=== PATIENT | male | born 1950 | race Caucasian/White ===

== ENCOUNTER 2016-09-11 15:48 | Emergency (ER) | payer OTHER ==
[~2016-09-11] VITALS: Ht 180.3 cm; Wt 117.6 kg
[~2016-09-11 15:48] MED LIST: AMBI5TAB PO; CARV6.252 PO; ECOT81TA2 PO; FURO20TA PO; GLUCTAB PO; MILK175C5 PO; MORP30SU PO; NORT1CAP53 PO; OMEP20TA PO; PARKINSONS MED PO; SERT-132 PO; SPIR25TA PO; VITA10002 PO
[2016-09-11 15:52] VITALS: BP 131/96; PULSE 75; RESP 16; TEMP 98.9; O2SAT 97
[2016-09-11] MEDS ORDERED: ACETAMINOPHEN/HYDROcodone 325 MG/5 MG TAB PO ONE (16:15)
--- NOTE | 2016-09-11 16:15 | PD ---
HPI Chief Complaint: Musculoskeletal Complaint Time Seen by Provider: 16:14 Travel History International Travel<30 days: No Contact w/Intl Traveler<30days: No Traveled to known affect area: No History of Present Illness HPI 65-year-old right-hand dominant male who since the ED for evaluation of 10/10 left wrist pain. Onset just before arrival. Patient states he lost his balance , tripped, landing on his outstretched left hand. He endorses pain with attempted range of motion. He denies hitting his head or loss of consciousness. He denies previous injury to the area. He denies numbness, tingling, weakness of the extremity. He denies other musculoskeletal injury. No treatment attempt at home. PFSH Past Medical History Arthritis: Yes Asthma: Yes Anxiety: Yes Depression: Yes Cancer: No Cardiac Catheterization: Yes (2002) Cardiovascular Problems: Yes High Cholesterol: Yes Congestive Heart Failure: Yes Coronary Artery Disease: Yes Diabetes: Yes Diminished Hearing: Yes Endocrine: Yes Genitourinary: No Headaches: Yes Hepatitis: No Hiatal Hernia: No Hypertension: Yes Immune Disorder: No Kidney Stones: Yes Musculoskeletal: Yes Neurologic: No Psychiatric: Yes Reproductive: No Respiratory: Yes (ASTHMA ; SLEEP APNEA) Immunizations Current: Yes Sleep Apnea: Yes Thyroid Disease: No Past Surgical History Abdominal Surgery: No AICD: No Cardiac Surgery: Yes (HEART CATH; INSERTION PACEMAKER) Ear Surgery: No Endocrine Surgery: No Eye Surgery: No Genitourinary Surgery: No Gynecologic Surgery: No Joint Replacement: No Oral Surgery: No Pacemaker: Yes Thoracic Surgery: No Other Surgery: Yes (FISTULOTOMY, LIVER BIOPSY) Social History Alcohol Use: No Tobacco Use: No (NEVER) Substance Use: Yes (BOUGHT PAIN PILLS OFF STREET) Allergies-Medications (Allergen,Severity, Reaction): Coded Allergies: Penicillin (Verified Allergy, Severe, HIVES, 09/11/16) Reported Meds & Prescriptions Reported Meds & Active Scripts Active Tylenol (Acetaminophen) 325 Mg Tab 650 Mg PO Q8HR PRN Lortab (Hydrocodone-Acetaminophen) 5-325 Mg Tab 1-2 Tab PO Q8HR PRN Reported Spironolactone 25 Mg Tab 25 Mg PO DAILY Sertraline (Sertraline HCl) 100 Mg Tab 100 Mg PO BID Omeprazole 20 Mg Tab 20 Mg PO DAILY Pamelor (Nortriptyline HCl) 25 Mg Cap 25 Mg PO HS Morphine Sulfate CR (Morphine Sulfate) 15 Mg Tab 30 Mg PO Q8HR PRN Milk Thistle 175 Mg Cap 1 Cap PO BID Metformin (Metformin HCl) 500 Mg Tab 250 Mg PO BIDPC With meals Furosemide 40 Mg Tab 40 Mg PO DAILY Vitamin B-12 (Cyanocobalamin) 1,000 Mcg Tab 2,000 Mcg PO DAILY Carvedilol 25 Mg Tab 25 Mg PO BID Aspirin 81 Mg Tabdr 81 Mg PO DAILY [Parkinsons Med] 1 Tab PO DAILY Review of Systems Except as stated in HPI: all other systems reviewed are Neg Physical Exam Narrative GENERAL: Well-nourished, well-developed pleasant white male in no acute distress. SKIN: Focused skin assessment warm/dry. HEAD: Normocephalic. EYES: No scleral icterus. No injection or drainage. NECK: Supple, trachea midline. No JVD or lymphadenopathy. CARDIOVASCULAR: Regular rate and rhythm without murmurs, gallops, or rubs. RESPIRATORY: Breath sounds equal bilaterally. No accessory muscle use. GASTROINTESTINAL: Abdomen soft, non-tender, nondistended. FOCUSED LEFT UPPER EXTREMITY EXAM: 2+ radial pulse. No cyanosis. Mild to moderate edema of the left wrist. Tender to palpation of the distal radius. No snuffbox tenderness. Attempted flexion and extension of the wrist elicits pain. Patient is able to weakly flex and extend the fingers. Sensation intact to light touch distally. Cap refill less than 2 seconds. BACK: Nontender without obvious deformity. No CVA tenderness. Data Data Last Documented VS Vital Signs Date Time Temp Pulse Resp B/P Pulse Ox O2 Delivery O2 Flow Rate FiO2 09/11/16 17:04 16 09/11/16 15:52 98.9 75 131/96 97 Orders Wrist, Complete (Epr9erh) (09/11/16 16:11) Ice/Cold Pack (09/11/16 16:11) Acetamin-Hydrocod 325-5 Mg ([place] 5-325 (09/11/16 16:15) Splint Or Brace Apply/Monitor (09/11/16 17:34) Fiberglass Sugartong Sp Ad Arm (09/11/16 ) Sling Cradle Arm (09/11/16 ) MDM Medical Decision Making Medical Screen Exam Complete: Yes Emergency Medical Condition: Yes Differential Diagnosis Radial fracture versus ulnar fracture versus scaphoid fracture versus musculoskeletal pain versus other Narrative Course 65-year-old right-hand dominant male who since the ED for evaluation of 03/24 left wrist pain. Onset just before arrival. Patient states he lost his balance , tripped, landing on his outstretched left hand. He endorses pain with attempted range of motion. He denies hitting his head or loss of consciousness. He denies previous injury to the area. He denies numbness, tingling, weakness of the extremity. He denies other musculoskeletal injury. Vitals reviewed. Physical exam reveals a pleasant white male in no acute distress. There is a 2+ left radial pulse. No cyanosis. Mild to moderate edema of the left wrist. Tender to palpation of the left distal radius. No snuffbox tenderness. Attempted flexion and extension of the wrist elicits pain. Patient is able to weakly flex and extend the fingers. Sensation intact to light touch distally. Cap refill less than 2 seconds. Ice pack was applied. Patient was administered 5 mg Lortab by mouth. X-rays reveal an impacted fracture of the distal radial metaphysis extending to the dorsal articular surface with 20 of palmar angulation. I discussed the patient with the on-call orthopedist, Dr. Fuentes. He recommends splinting and follow-up in the office. I discussed the results of the x-ray and the plan of care with the patient who is agreeable. Sugar tong splint and sling was applied. Patient was prescribed a short course of Tylenol and Lortab. He is instructed to keep the splint intact until cleared by the orthopedist. He indicated understanding of instructions. He is stable and discharged home. Diagnosis Primary Impression: Left radial fracture Qualified Code: S52.592A - Other closed fracture of distal end of left radius , initial encounter Referrals: Osei Fuentes Jr., MD Patient Instructions: Arm Fracture in Adults (ED), General Instructions, Wrist Fracture in Adults (ED) Additional Instructions: Rest, ice the extremity. Apply ice no longer than 10-15 minutes per hour a few times a day. Tylenol times a day as prescribed Lortab every 8 hours as needed for pain greater than 6. Did not remove the splint for any reason. Keep the arm in sling unless showering. Dr. Fuentes's office tomorrow for an appointment. Return to the ED for any urgent or emergent medical condition. Med/Other Pt SpecificInfo: Prescription(s) given Scripts Acetaminophen (Tylenol)325 Mg [id number] Mg PO Q8HR PRN (PAIN SCALE 1 TO 5) #15 TAB Ref 0 Prov:Ghislaine Verde MD 09/11/16 Hydrocodone-Acetaminophen (Lortab)5-325 Mg Tab1-2 Tab PO Q8HR PRN (PAIN GREATER THAN 6) #12 TAB Ref 0 Prov:Ghislaine Verde MD 09/11/16 Disposition: 01 DISCHARGE HOME Condition: Stable Paige Perez Sep 11, 2016 16:15
[2016-09-11] MEDS ORDERED: CARV25TA PO (16:26)
[2016-09-11] MEDS ORDERED: PAME25CA PO (16:26)
[2016-09-11] MEDS ORDERED: SERT-129 PO (16:26)
[2016-09-11] MEDS ORDERED: METF500T PO (16:26)
[2016-09-11] MEDS ORDERED: FURO40TA PO (16:26)
[2016-09-11] MEDS ORDERED: MORP15TA73 PO (16:26)
[2016-09-11] MEDS ORDERED: VITA10002 PO (16:26)
[2016-09-11] MEDS ORDERED: MILK175C7 PO (16:26)
[2016-09-11] MEDS ORDERED: ASPI1TAB69 PO (16:26)
[2016-09-11] MEDS ORDERED: SPIR25TA PO (16:26)
[2016-09-11] MEDS ORDERED: OMEP20TA PO (16:26)
[2016-09-11 17:04] VITALS: RESP 16
--- NOTE | 2016-09-11 17:07 | RADHPO ---
EXAM DATE/TIME: 09/11/2016 16:30 [facility] COMPARISON: No previous studies available for comparison. INDICATIONS : Fall. Complains of left wrist pain. MEDICAL HISTORY : None. SURGICAL HISTORY : None. ENCOUNTER: Initial ACUITY: 1 day PAIN SCORE: 10/10 LOCATION: Left wrist FINDINGS: 3 views of the left wrist reveal an acute impaction style fracture of the distal radial metaphysis. T here is a fracture line that is felt to extend to the articular surface along the more dorsal aspect. Angulation is seen measuring approximately 20. Lawn is towards the palmar surface. The distal ulna and carpus is otherwise intact. Soft tissue swelling noted. Atherosclerotic change is observed. CONCLUSION: Acute distal radial fracture as detailed above. Cresencio Matt Jr., MD on September 11, 2016 at 17:05 Board Certified Radiologist. This report was verified electronically.
[2016-09-11] MEDS ORDERED: HYDR-3533 PO (17:45)
[2016-09-11] MEDS ORDERED: TYLE325T PO (17:45)
[2016-09-29] MEDS ORDERED: PERC5TAB12 PO (13:05)
== END 2016-09-11 18:08 | disposition home or self-care (01) ==
LOC: PHEFT 15:48
DX: S52.592A Other fractures of lower end of left radius, initial encounter for closed fracture (principal); W01.0XXA Fall on same level from slipping, tripping and stumbling without subsequent striking against object, initial encounter
CPT/HCPCS: 29125; 73110

== ENCOUNTER → 2016-09-29 | Day surgery (SDC) | payer OTHER ==
[~2016-09-29] VITALS: Ht 177.8 cm; Wt 114.7 kg
[~2016-09-29] MED LIST changes: +*HYDROmorphone PF 1 MG VIAL PERIprocedural Use ONLY ONE; +*morphine SULFATE 8 MG/ML PERIprocedure ONLY ONE; +ACETAMINOPHEN 1000 MG/100 ML VIAL IV ONE; -AMBI5TAB PO; +ASPI1TAB69 PO; +CARV25TA PO; -CARV6.252 PO; +CHLORHEXIDINE GLUCONATE 2 % 1 PACK (2 CLOTHS) TOPICAL PRN; +CHLORHEXIDINE GLUCONATE 4% SOLN 120 ML BTL TOPICAL SCH; +DO NOT ADM ANY ANTICOAGULANT DRUGS PRN; -ECOT81TA2 PO; +FAMOTIDINE 20 MG/2 ML VIAL ONE; -FURO20TA PO; +FURO40TA PO; +GENTAMICIN SULFATE 80 MG/2 ML VIAL ONE; -GLUCTAB PO; +HYDR-3533 PO; +HYDROmorphone HCL PF 2 MG/ML VIAL ONE; +INSULIN HUMAN REGULAR 1,000 UNITS/10 ML VIAL SQ PRN; +KETOROLAC TROMETHAMINE 30 MG/ML (IVP) VIAL IVP ONE; +LACTATED RINGER'S 1000 ML INJ 1,000 ML IV ONE; +LACTATED RINGER'S 1000 ML IV PRN; +METF500T PO; +METOPROLOL TARTRATE 25 MG TAB PO PRN; +MIDAZOLAM HCL 2 MG/2 ML VIAL ONE; -MILK175C5 PO; +MILK175C7 PO; +MORP15TA73 PO; -MORP30SU PO; +MORPHINE SULFATE 4 MG/ML INJ IV PUSH PRN; +NEOSTIGMINE 3 MG/3 ML SYR IV ONE; -NORT1CAP53 PO; +ONDANSETRON HCL 4 MG/2 ML VIAL IV PRN; +ONDANSETRON HCL 4 MG/2 ML VIAL IV PUSH ONE; +PAME25CA PO; +PERC5TAB12 PO; +POVIDONE IODINE 5% (ANTISEPSIS KIT) 4 APPLICATIONS EACH NARE PRN; +PROPOFOL 200 MG/20 ML AMP IV ONE; +SERT-129 PO; -SERT-132 PO; +SODIUM CHLOR 0.9% 250 ML INJ 250 ML ONE; +SODIUM CHLORID 0.9% 500 ML IV PRN; +SODIUM CHLORIDE 0.9% FLUSH 10 ML FLUSH IV FLUSH PRN; +SODIUM CHLORIDE 0.9% FLUSH 10 ML FLUSH IV FLUSH SCH; +TYLE325T PO; +VANCOMYCIN 1000 MG/NS 250 ML (for <70 kg) IV SCH; +VANCOMYCIN HCL 1000 MG VIAL ONE; +ceFAZolin 2 GM PREMIX 50 ML ONE; +fentaNYL CITRATE 250 MCG/5 ML AMP ONE; +oxyCODONE/ACETAMINOPHEN 5 MG/325 MG TAB PO PRN
[2016-09-29 10:00] VITALS: BP 185/96; PULSE 66; RESP 18; TEMP 98.1; O2SAT 98
--- NOTE | 2016-09-29 10:50 | EKG ---
Date Performed: 09/29/2016 Time Performed: 10:00:30 PTAGE: 66 years EKG: ELECTRONIC VENTRICULAR PACEMAKER ABNORMAL RHYTHM ECG PREVIOUS TRACING : 08/20/2013 03.35 Compared to prior tracing no significant change DOCTOR: Carlos Miller Interpretating Date/Time 09/29/2016 10:49:32
--- NOTE | 2016-09-29 13:10 | PD.OP ---
cc: Osei Fuentes Jr., MD Operative Report Date of Surgery: Sep 29, 2016 Preoperative Diagnosis: Left intra-articular distal radius fracture, closed Postoperative Diagnosis: Same Procedure: Open reduction internal fixation left distal radius Anesthesia: Gen. Surgeon: Osei Fuentes Senior Copywriter(s): Staff Resident Surgeon: None Operation and Findings: Patient was seen and evaluated preoperatively and found to have a left intra- articular-articular displaced distal radius fracture. Informed consent was obtained after detailed discussion of risk and benefits including bleeding, infection, injury to arteries, nerves, and blood vessels, weakness and numbness of hand, and tendon rupture. Informed consent was obtained. Patient received IV antibiotics prior to incision. Timeout procedure was performed. Operative extremity was prepped with alcohol followed by Hibiclens and draped usual sterile fashion. A standard volar approach to the distal radius was utilized. A 3 inch incision was made over the FCR tendon. Tendon sheath was opened. Pronator quadratus was elevated up. The fracture site was now visualized. The fracture did have intra-articular extension. Traction was applied. The articular surface was reduced. Fracture fragments were manipulated to achieve excellent reduction. K wires were used to hold provisional fixation. Fluoroscopy confirmed appropriate alignment of fracture. A Synthes 2 column variable angle distal radius plate was selected. Plate was provisionally fixed to bone with K wires. 2.7 cortical screws were used to compress plate to bone. Fluoroscopy confirmed appropriate alignment of fracture with well-placed hardware. Multiple 2.7 locking screws were now placed distally. Screws were predrilled and measured for appropriate length. 1 additional screws were placed into the shaft. K wires were removed. Final fluoroscopy revealed excellent of fracture with well-placed hardware. The wound was thoroughly irrigated with sterile saline. Subcutaneous tissue was closed with 2-0 Vicryl and skin was closed with 2-0 nylon. Sterile dressings were applied with Xeroform, 4 x 4, soft roll , and a well padded volar splint. Patient was awakened and transferred to recovery room in stable condition IMPLANTS USED Synthes 2 column variable angle distal radius plate. POSTP-OP PLAN OF ACTIVITY Antiocoagulation: SCD Dressing: Do not remove splints Future procedure planned: none Dispo: home from PACU Osei Fuentes Jr., MD Sep 29, 2016 13:10
--- NOTE | 2016-09-29 15:36 | RADRPT ---
EXAM DATE/TIME: 09/29/2016 12:53 [facility] COMPARISON: No previous studies available for comparison. INDICATIONS : Distal radius fracture. Open reduction internal fixation. MEDICAL HISTORY : None. SURGICAL HISTORY : None. ENCOUNTER: Initial ACUITY: 1 day PAIN SCORE: Non-responsive. LOCATION: Left Forearm. FINDINGS: Two view examination of the left forearm demonstrates postsurgical changes following open reduction a nd internal fixation of a distal radial fracture. Extra medullary plate has been placed along the kenneth tral surface of the distal radius. There is satisfactory alignment of the fracture fragments. CONCLUSION: Satisfactory appearance of the distal left radius following ORIF as described. Vikash Charles MD on September 29, 2016 at 15:33 Board Certified Radiologist. This report was verified electronically.
[2016-09-29 16:25] VITALS: BP 166/81; PULSE 77; RESP 18; TEMP 98.1; O2SAT 97
== END | disposition home or self-care (01) ==
LOC: HSDC 09:18
PROVIDERS: ATTEND Orthopaedic Surgery
DX: S52.572A Other intraarticular fracture of lower end of left radius, initial encounter for closed fracture (principal); I10 Essential (primary) hypertension; E11.9 Type 2 diabetes mellitus without complications; W01.0XXA Fall on same level from slipping, tripping and stumbling without subsequent striking against object, initial encounter
CPT/HCPCS: 01830; 25609; 73090; 76000; 86850; 86900; 86901; 93005; C1713; J0131; J0690; J1170; J1580; J1885; J2250; J2270; J2405; J2710; J3010; J3370; J7050; J7120

== ENCOUNTER 2017-01-12 11:38 | Observation (INO) | payer OTHER ==
[~2017-01-12] VITALS: Ht 180.3 cm; Wt 105.0 kg
[~2017-01-12 11:38] MED LIST changes: -*HYDROmorphone PF 1 MG VIAL PERIprocedural Use ONLY ONE; -*morphine SULFATE 8 MG/ML PERIprocedure ONLY ONE; -ACETAMINOPHEN 1000 MG/100 ML VIAL IV ONE; -CHLORHEXIDINE GLUCONATE 2 % 1 PACK (2 CLOTHS) TOPICAL PRN; -CHLORHEXIDINE GLUCONATE 4% SOLN 120 ML BTL TOPICAL SCH; -DO NOT ADM ANY ANTICOAGULANT DRUGS PRN; -FAMOTIDINE 20 MG/2 ML VIAL ONE; -GENTAMICIN SULFATE 80 MG/2 ML VIAL ONE; -HYDROmorphone HCL PF 2 MG/ML VIAL ONE; -INSULIN HUMAN REGULAR 1,000 UNITS/10 ML VIAL SQ PRN; -KETOROLAC TROMETHAMINE 30 MG/ML (IVP) VIAL IVP ONE; -LACTATED RINGER'S 1000 ML INJ 1,000 ML IV ONE; -LACTATED RINGER'S 1000 ML IV PRN; -METOPROLOL TARTRATE 25 MG TAB PO PRN; -MIDAZOLAM HCL 2 MG/2 ML VIAL ONE; -MORPHINE SULFATE 4 MG/ML INJ IV PUSH PRN; -NEOSTIGMINE 3 MG/3 ML SYR IV ONE; -ONDANSETRON HCL 4 MG/2 ML VIAL IV PRN; -ONDANSETRON HCL 4 MG/2 ML VIAL IV PUSH ONE; -POVIDONE IODINE 5% (ANTISEPSIS KIT) 4 APPLICATIONS EACH NARE PRN; -PROPOFOL 200 MG/20 ML AMP IV ONE; -SODIUM CHLOR 0.9% 250 ML INJ 250 ML ONE; -SODIUM CHLORID 0.9% 500 ML IV PRN; -SODIUM CHLORIDE 0.9% FLUSH 10 ML FLUSH IV FLUSH PRN; -SODIUM CHLORIDE 0.9% FLUSH 10 ML FLUSH IV FLUSH SCH; -TYLE325T PO; -VANCOMYCIN 1000 MG/NS 250 ML (for <70 kg) IV SCH; -VANCOMYCIN HCL 1000 MG VIAL ONE; -ceFAZolin 2 GM PREMIX 50 ML ONE; -fentaNYL CITRATE 250 MCG/5 ML AMP ONE; -oxyCODONE/ACETAMINOPHEN 5 MG/325 MG TAB PO PRN
[2017-01-12 11:41] VITALS: BP 159/79; PULSE 99; RESP 16; TEMP 98.2; O2SAT 99
--- NOTE | 2017-01-12 11:45 | PD ---
Physical Exam Time Seen by Provider: 11:44 Narrative 66 y/o male here for evaluation of chest pain, hbp. He has had intermittent cp for 2 months. currently experiencing mild chest pain. Vital signs reviewed. Seen at triage desk. Awaiting bed placement. Data Data Last Documented VS Vital Signs Date Time Temp Pulse Resp B/P Pulse Ox O2 Delivery O2 Flow Rate FiO2 01/12/17 11:41 98.2 99 16 159/79 99 MDM Medical Record Reviewed: Yes Supervised Visit with ROSALVA: Nelson uSn Jan 12, 2017 11:45
[2017-01-12] MEDS ORDERED: ASPIRIN 325 MG TAB PO ONE (12:15)
--- NOTE | 2017-01-12 12:22 | PD ---
HPI Chief Complaint: Chest Pain Time Seen by Provider: 11:56 Travel History International Travel<30 days: No Contact w/Intl Traveler<30days: No Traveled to known affect area: No History of Present Illness HPI 66- year old male presents with chest pain. Patient reports he went to his pain management appointment this morning. However, he was sent here due to intermittent chest pain and high blood pressure, which he reports was 220/90. He reports that he had this intermittent chest pain for months. He has not taken any medication this morning as he reports he usually does not take any medication before his appointments. The patient reports that he is scheduled to see his supervisor brine (Dr. Smith) tomorrow for pacemaker placement. He reports nothing makes the pain better or worse. He states the pain is not sharp or stabbing but just feels like it is there. He reports no radiation with the pain and denies any jaw pain or arm pain. The patient rates his pain as a 5/10 right now, but it varies throughout the day. PFSH Past Medical History Arthritis: Yes Asthma: Yes Anxiety: Yes Depression: Yes Cancer: No Cardiac Catheterization: Yes (2002) Cardiovascular Problems: Yes High Cholesterol: Yes Congestive Heart Failure: Yes Coronary Artery Disease: Yes Diabetes: Yes Diminished Hearing: Yes Endocrine: Yes Gastrointestinal Disorders: No Genitourinary: No Headaches: Yes Hepatitis: No Hiatal Hernia: No Hypertension: Yes Immune Disorder: No Kidney Stones: Yes Musculoskeletal: Yes Neurologic: No Psychiatric: Yes Reproductive: No Respiratory: Yes Immunizations Current: Yes Sleep Apnea: Yes Thyroid Disease: No Past Surgical History Abdominal Surgery: No AICD: No Cardiac Surgery: Yes (HEART CATH; INSERTION PACEMAKER) Ear Surgery: No Endocrine Surgery: No Eye Surgery: No Genitourinary Surgery: No Gynecologic Surgery: No Joint Replacement: No Neurologic Surgery: No Oral Surgery: No Pacemaker: Yes Thoracic Surgery: No Other Surgery: Yes (FISTULOTOMY, LIVER BIOPSY) Social History Alcohol Use: No Tobacco Use: No (NEVER) Substance Use: Yes (BOUGHT PAIN PILLS OFF STREET) Allergies-Medications (Allergen,Severity, Reaction): Coded Allergies: Penicillin (Verified Allergy, Severe, HIVES, 09/29/16) Reported Meds & Prescriptions Reported Meds & Active Scripts Active Percocet (Oxycodone-Acetaminophen) 5-325 mg Tab 1 Tab PO Q4H PRN Lortab (Hydrocodone-Acetaminophen) 5-325 Mg Tab 1-2 Tab PO Q8HR PRN Reported Spironolactone 25 Mg Tab 25 Mg PO DAILY Sertraline (Sertraline HCl) 100 Mg Tab 100 Mg PO BID Omeprazole 20 Mg Tab 20 Mg PO DAILY Pamelor (Nortriptyline HCl) 25 Mg Cap 25 Mg PO HS Morphine Sulfate CR (Morphine Sulfate) 15 Mg Tab 30 Mg PO Q8HR PRN Milk Thistle 175 Mg Cap 1 Cap PO BID Metformin (Metformin HCl) 500 Mg Tab 250 Mg PO BIDPC With meals Furosemide 40 Mg Tab 40 Mg PO DAILY Vitamin B-12 (Cyanocobalamin) 1,000 Mcg Tab 2,000 Mcg PO DAILY Carvedilol 25 Mg Tab 25 Mg PO BID Aspirin 81 Mg Tabdr 81 Mg PO DAILY [Parkinsons Med] 1 Tab PO DAILY Review of Systems General / Constitutional: No: Fever, Chills, Weight Gain, Weight Loss, Other Eyes: No: Diploplia, Blurred Vision, Photophobia, Drainage, Redness, Foreign Body Sensation, Pain, Tearing, Blind Spots, Visual changes, Blindness, Other HENT: No: Headaches, Vertigo, Lightheadedness, Sore Throat, Rhinitis, Rhinorrhea, Congestion, Nosebleed, Neck Stiffness, Neck Pain, Masses, Gingival Bleeding, Dental Difficulties, Ear Discharge, Earache, Other Cardiovascular: Positive: Chest Pain or Discomfort, No: Palpitations, Irregular Rhythm, Tachycardia, Diaphoresis, Syncope, Dyspnea on exertion, Varicosities, Edema, Cyanosis, Varicosities, Phlebitis, Claudication, Other Respiratory: No: Cough, Shortness of Breath, Wheezing, Sneezing, Orthopnea, Hemoptysis, Stridor, Night Sweats, Pleuritic Pain, Other Gastrointestinal: No: Nausea, Vomiting, Diarrhea, Abdominal Pain, Hematemesis, Hematochezia, Constipation, Changes in Bowel Habits, Indigestion, Dysphagia, Loss of Appetite, Other Genitourinary: No: Urgency, Frequency, Dysuria, Nocturia, Hematuria, Decreased Urinary Output, Oliguria, Hesitancy, Dribbling, Incontinence, Pelvic Pain, Flank Pain, Dyspareunia, Discharge, Dysmenorrhea, Menorrhagia, Metorrhagia, Vaginal Bleeding, Other Musculoskeletal: Positive: Pain, No: Myalgias, Arthralgias, Limited ROM, Weakness, Cramping, Edema, Atrophy, Other Skin: No Rash, No Itching, No Dryness, No Lumps, No Hives, No Change in Pigmentation, No Change in nails, No Alopecia, No Lesions, No Breast Lumps, No Breast Tenderness, No Breast Swelling, No Other Neurologic: No: Weakness, Dizziness, Syncope, Focal Abnormalities, Coordination Problem, Tremor, Ataxia, Headache, Change in Mentation, Slurred Speech, Paresthesia, Incontinence, Seizures, Sensory Disturbance, Other Physical Exam Narrative GENERAL: SKIN: Warm and dry. HEAD: Atraumatic. Normocephalic. EYES: Pupils equal and round. No scleral icterus. No injection or drainage. ENT: No nasal bleeding or discharge. Mucous membranes pink and moist. NECK: Trachea midline. No JVD. CARDIOVASCULAR: Regular rate and rhythm. No S3, no murmurs. RESPIRATORY: No accessory muscle use. Clear to auscultation. Breath sounds equal bilaterally. GASTROINTESTINAL: Abdomen soft, non-tender, nondistended. Hepatic and splenic margins not palpable. MUSCULOSKELETAL: Extremities without clubbing, cyanosis, or edema. No obvious deformities. NEUROLOGICAL: Awake and alert. No obvious cranial nerve deficits. Motor grossly within normal limits. Five out of 5 muscle strength in the arms and legs. Normal speech. PSYCHIATRIC: Appropriate mood and affect; insight and judgment normal. Data Data Last Documented VS Vital Signs Date Time Temp Pulse Resp B/P Pulse Ox O2 Delivery O2 Flow Rate FiO2 01/12/17 12:39 99 Room Air 01/12/17 11:55 68 20 01/12/17 11:41 98.2 159/79 Orders Electrocardiogram (01/12/17 11:51) Complete Blood Count With Diff (01/12/17 11:51) Basic Metabolic Panel (Bmp) (01/12/17 11:51) Ckmb (Isoenzyme) Profile (01/12/17 11:51) Troponin I (01/12/17 11:51) B-Type Natriuretic Peptide (01/12/17 11:51) Prothrombin Time / Inr (Pt) (01/12/17 11:51) Act Partial Throm Time (Ptt) (01/12/17 11:51) Magnesium (Mg) (01/12/17 11:51) Chest, Single Ap (01/12/17 11:51) Iv Access Insert/Monitor (01/12/17 11:51) Ecg Monitoring (01/12/17 11:51) Oximetry (01/12/17 11:51) Hepatic Functional Panel (01/12/17 12:07) Lipase (01/12/17 12:07) Ammonia (01/12/17 12:07) Aspirin (Aspirin) (01/12/17 12:15) Admit Order (Ed Use Only) (01/12/17 13:55) Labs Laboratory Tests Test 01/12/17 01/12/17 11:55 13:05 White Blood Count 13.6 TH/MM3 Red Blood Count 5.05 MIL/MM3 Hemoglobin 14.9 GM/DL Hematocrit 43.2 % Mean Corpuscular Volume 85.6 FL Mean Corpuscular Hemoglobin 29.6 PG Mean Corpuscular Hemoglobin 34.5 % Concent Red Cell Distribution Width 14.8 % Platelet Count 173 TH/MM3 Mean Platelet Volume 9.9 FL Neutrophils (%) (Auto) 71.7 % Lymphocytes (%) (Auto) 19.0 % Monocytes (%) (Auto) 6.0 % Eosinophils (%) (Auto) 2.4 % Basophils (%) (Auto) 0.9 % Neutrophils # (Auto) 9.8 TH/MM3 Lymphocytes # (Auto) 2.6 TH/MM3 Monocytes # (Auto) 0.8 TH/MM3 Eosinophils # (Auto) 0.3 TH/MM3 Basophils # (Auto) 0.1 TH/MM3 CBC Comment DIFF FINAL Differential Comment Prothrombin Time 11.0 SEC Prothromb Time International 1.0 RATIO Ratio Activated Partial 25.1 SEC Thromboplast Time Sodium Level 139 MEQ/L Potassium Level 4.8 MEQ/L Chloride Level 103 MEQ/L Carbon Dioxide Level 28.9 MEQ/L Anion Gap 7 MEQ/L Blood Urea Nitrogen 13 MG/DL Creatinine 0.89 MG/DL Estimat Glomerular Filtration 86 ML/MIN Rate Random Glucose 101 MG/DL Calcium Level 8.9 MG/DL Magnesium Level 2.2 MG/DL Total Bilirubin 1.1 MG/DL Direct Bilirubin 0.2 MG/DL Indirect Bilirubin 0.9 MG/DL Aspartate Amino Transf 51 U/L (AST/SGOT) Alanine Aminotransferase 32 U/L (ALT/SGPT) Alkaline Phosphatase 108 U/L Total Creatine Kinase 85 U/L Troponin I LESS THAN 0.02 NG/ML B-Type Natriuretic Peptide 42 PG/ML Total Protein 7.9 GM/DL Albumin 3.8 GM/DL Lipase 184 U/L Ammonia 21 MCMOL/L MDM Medical Decision Making Medical Screen Exam Complete: Yes Emergency Medical Condition: Yes Medical Record Reviewed: Yes Interpretation(s) EKG showed paced rhythm with no sign of acute ischemia or arrhythmia read by me and attending. CK-MB and troponin negative. BNP within normal limits. Lipase and LFTs within normal limits. Last Impressions Chest X-Ray 01/12/17 1151 Signed Impressions: Service Date/Time: Thursday, January 12, 2017 12:07 - CONCLUSION: No acute disease. Cresencio Matt Jr., MD CBC & BMP Diagram 01/12/17 11:55 Differential Diagnosis ACS vs NSTEMI vs chest pain vs atypical chest pain vs CHF vs normal exam Narrative Course 66-year-old male that presents to the ED for evaluation of chest pain. Patient was properly examined and was found to have signs and symptoms very consistent what appears to be chest pain. Concerning for ACS. Labs and imaging were ordered. Labs and imaging were negative. Patient was given aspirin. I discussed the case with my attending Dr. Watkins who evaluated the patient and recommends admission to the chest pain center. Patient was admitted for chest pain center. Procedures EKG Prior to Arrival: No Diagnosis Primary Impression: Chest pain in adult Admitting Information Admitting Physician Requests: Valentin Barrios Jan 12, 2017 12:22
[2017-01-12 12:39] VITALS: O2SAT 99
[2017-01-12 12:46] LABS: AUTOMATED NEUTROPHIL # 9.8 TH/MM3 (1.8-7.7); BASOPHIL # 0.1 TH/MM3 (0-0.2); BASOPHIL % 0.9 % (0.0-2.0); EOSINOPHIL # 0.3 TH/MM3 (0-0.4); EOSINOPHIL % 2.4 % (0.0-4.0); HEMATOCRIT 43.2 % (39.0-51.0); HEMO FLAGS DIFF FINAL; LYMPHOCYTE # 2.6 TH/MM3 (1.0-4.8); MEAN CELL VOLUME 85.6 FL (80.0-100.0); MEAN CORPUSCULAR HEMOGLOBIN 29.6 PG (27.0-34.0); MEAN CORPUSCULAR HGB CONC 34.5 % (32.0-36.0); NEUT % 71.7 % (16.0-70.0); PLATELET COUNT 173 TH/MM3 (150-450); RED BLOOD COUNT 5.05 MIL/MM3 (4.50-5.90); RED CELL DISTRIBUTION WIDTH 14.8 % (11.6-17.2); WHITE BLOOD COUNT 13.6 TH/MM3 (4.0-11.0)
--- NOTE | 2017-01-12 12:51 | RADRPT ---
EXAM DATE/TIME: 01/12/2017 12:07 [facility] COMPARISON: CHEST SINGLE AP, August 20, 2013, 3:44. INDICATIONS : Chest pain. MEDICAL HISTORY : Hypertension. Congestive heart failure. SURGICAL HISTORY : Pacemaker. ENCOUNTER: Initial ACUITY: 1 month PAIN SCORE: 10/10 LOCATION: Bilateral chest FINDINGS: A single view of the chest demonstrates the lungs to be symmetrically aerated without evidence of mas s, infiltrate or effusion. The cardiomediastinal contours are unremarkable. Pacing device overlying the left chest. Osseous structures are intact. CONCLUSION: No acute disease. Cresencio Matt Jr., MD on January 12, 2017 at 12:48 Board Certified Radiologist. This report was verified electronically.
[2017-01-12 12:55] LABS: APTT (PATIENT) 25.1 SEC (24.3-30.1)
[2017-01-12 13:00] VITALS: BP 138/82; PULSE 59; RESP 16; O2SAT 99
[2017-01-12 13:20] LABS: TOTAL BILIRUBIN ADULT 1.1 MG/DL (0.2-1.0)
[2017-01-12 13:32] LABS: ANION GAP 7 MEQ/L (5-15); BICARBONATE 28.9 MEQ/L (21.0-32.0); BLOOD UREA NITROGEN 13 MG/DL (7-18); CHLORIDE 103 MEQ/L (98-107); GLOMERULAR FILTRATION RATE 86 ML/MIN (>89); INDIRECT BILIRUBIN 0.9 MG/DL (0.0-0.8); MAGNESIUM 2.2 MG/DL (1.5-2.5); SODIUM (NA) 139 MEQ/L (136-145)
[2017-01-12 13:33] LABS: CREATINE KINASE 85 U/L (39-308); POTASSIUM 4.8 MEQ/L (3.5-5.1)
[2017-01-12] MEDS ORDERED: MORPHINE SULFATE 30 MG CONTROLLED RELEASE TAB PO PRN (14:30)
[2017-01-12] MEDS ORDERED: CARVEDILOL 12.5 MG TAB PO SCH (14:30)
--- NOTE | 2017-01-12 14:56 | PD ---
Data Data Last Documented VS Vital Signs Date Time Temp Pulse Resp B/P Pulse Ox O2 Delivery O2 Flow Rate FiO2 01/12/17 12:39 99 Room Air 01/12/17 11:55 68 20 01/12/17 11:41 98.2 159/79 Orders Electrocardiogram (01/12/17 11:51) Complete Blood Count With Diff (01/12/17 11:51) Basic Metabolic Panel (Bmp) (01/12/17 11:51) Ckmb (Isoenzyme) Profile (01/12/17 11:51) Troponin I (01/12/17 11:51) B-Type Natriuretic Peptide (01/12/17 11:51) Prothrombin Time / Inr (Pt) (01/12/17 11:51) Act Partial Throm Time (Ptt) (01/12/17 11:51) Magnesium (Mg) (01/12/17 11:51) Chest, Single Ap (01/12/17 11:51) Iv Access Insert/Monitor (01/12/17 11:51) Ecg Monitoring (01/12/17 11:51) Oximetry (01/12/17 11:51) Hepatic Functional Panel (01/12/17 12:07) Lipase (01/12/17 12:07) Ammonia (01/12/17 12:07) Aspirin (Aspirin) (01/12/17 12:15) Admit Order (Ed Use Only) (01/12/17 13:55) Labs Laboratory Tests Test 01/12/17 01/12/17 11:55 13:05 White Blood Count 13.6 TH/MM3 Red Blood Count 5.05 MIL/MM3 Hemoglobin 14.9 GM/DL Hematocrit 43.2 % Mean Corpuscular Volume 85.6 FL Mean Corpuscular Hemoglobin 29.6 PG Mean Corpuscular Hemoglobin 34.5 % Concent Red Cell Distribution Width 14.8 % Platelet Count 173 TH/MM3 Mean Platelet Volume 9.9 FL Neutrophils (%) (Auto) 71.7 % Lymphocytes (%) (Auto) 19.0 % Monocytes (%) (Auto) 6.0 % Eosinophils (%) (Auto) 2.4 % Basophils (%) (Auto) 0.9 % Neutrophils # (Auto) 9.8 TH/MM3 Lymphocytes # (Auto) 2.6 TH/MM3 Monocytes # (Auto) 0.8 TH/MM3 Eosinophils # (Auto) 0.3 TH/MM3 Basophils # (Auto) 0.1 TH/MM3 CBC Comment DIFF FINAL Differential Comment Prothrombin Time 11.0 SEC Prothromb Time International 1.0 RATIO Ratio Activated Partial 25.1 SEC Thromboplast Time Sodium Level 139 MEQ/L Potassium Level 4.8 MEQ/L Chloride Level 103 MEQ/L Carbon Dioxide Level 28.9 MEQ/L Anion Gap 7 MEQ/L Blood Urea Nitrogen 13 MG/DL Creatinine 0.89 MG/DL Estimat Glomerular Filtration 86 ML/MIN Rate Random Glucose 101 MG/DL Calcium Level 8.9 MG/DL Magnesium Level 2.2 MG/DL Total Bilirubin 1.1 MG/DL Direct Bilirubin 0.2 MG/DL Indirect Bilirubin 0.9 MG/DL Aspartate Amino Transf 51 U/L (AST/SGOT) Alanine Aminotransferase 32 U/L (ALT/SGPT) Alkaline Phosphatase 108 U/L Total Creatine Kinase 85 U/L Troponin I LESS THAN 0.02 NG/ML B-Type Natriuretic Peptide 42 PG/ML Total Protein 7.9 GM/DL Albumin 3.8 GM/DL Lipase 184 U/L Ammonia 21 MCMOL/L MDM Supervised Visit with ROSALVA: Yes Narrative Course The history, exam, and medical decision-making in the associated mid-level provider note were completed with my assistance. I reviewed and agree with the findings presented. I attest that I had a [id number] encounter with the patient on the same day, and personally performed and documented my assessment and findings in the medical record. *My assessment and Findings: 66 old man with a history of CAD and cardiomyopathy as well as hypertension diabetes presents emergency Department intermittent chest pain worsening for the past several months. He follows with Dr. Smith. He states that he was planning on getting a stress test in the near future with Dr. Smith. Given the worsening chest pain today came to the emergency department. Initial workups unremarkable. Patient will be admitted to the chest pain Center for further evaluation and risk stratification. Diagnosis Primary Impression: Chest pain in adult Gurdeep Watkins MD Jan 12, 2017 14:56
[2017-01-12 15:00] VITALS: BP 158/80; PULSE 62; RESP 16; O2SAT 99
[2017-01-12] MEDS ORDERED: ACETAMINOPHEN 500 MG CPLT PO PRN (15:15)
[2017-01-12] MEDS ORDERED: ALPRAZolam 0.25 MG TAB PO PRN (15:15)
[2017-01-12] MEDS ORDERED: SODIUM CHLORIDE 0.9% FLUSH 5 ML FLUSH IVF PRN (15:15)
[2017-01-12 16:33] VITALS: PULSE 60
--- NOTE | 2017-01-12 16:40 | HHI.HP ---
[facility] Primary Care Physician Ajit Vargas MD Chief Complaint Chest pain History of Present Illness This is a 66-year-old male that presents to ED with a complaint of intermittent chest discomfort for the past month. He states that when he hasn't easy last 1- 2 minutes. He states are very mild in nature. He had no social symptoms with them. However this morning a reoccurred 10-15 times. Each lasting 1-2 minutes. He was short of breath with it. No nausea or diaphoresis. It occurred once while he was at his pain management office visit. His blood pressure was checked and found to be 230/90. He was advised to come to the ED. He follows at [facility] of cardiology. States that he saw him not along go to the scheduled to have his pacemaker replaced in 2 days. He did talk to Dr. Smith about his chest discomfort and states that he was told that they would schedule a stress test. Currently denies chest discomfort. Denies recent illness. Denies any recent travel. States he was told he had congestive heart failure in 2002 while in [place] and at that time he had a heart catheterization and he states that he was told there were no blockages. His last stress test upon review records was July 2012 and was nonischemic. Review of Systems General: Patient denies fevers, chills recent, and recent travel HEENT: Patient denies headache, sore throat, difficulty swallowing. Cardiovascular: Has the chest discomfort as mentioned above. Denies sensation of heart beating rapidly or irregularly. No syncope. Denies diaphoresis. Respiratory: He was short of breath this morning. Denies inspirational chest discomfort. Denies coughing wheezing or hemoptysis. GI: Patient denies nausea, vomiting, diarrhea, abdominal pain, bloody stools. Musculoskeletal: Patient denies joint pain or edema. Denies calf pain or edema. Neurovascular: Patient denies numbness, tingling, weakness in extremities. Denies headache. Endocrine: Denies polyuria and polydipsia. Hematologic: Denies easy bruising. Skin: Denies rash or itching. Past Family Social History Allergies: Coded Allergies: Penicillin (Verified Allergy, Severe, HIVES, 09/29/16) Past Medical History Hypertension, diabetes, hyperlipidemia, chronic back pain, migraines, and diagnosed with congestive heart failure 2002. Pacemaker. Cirrhosis. Past Surgical History Cardiac catheterization without intervention 2002. Pacemaker. Reported Medications Reported Meds & Active Scripts Active Reported Sertraline (Sertraline HCl) 100 Mg Tab 100 Mg PO BID Omeprazole 20 Mg Tab 20 Mg PO DAILY Pamelor (Nortriptyline HCl) 25 Mg Cap 25 Mg PO HS Morphine Sulfate CR (Morphine Sulfate) 15 Mg Tab 30 Mg PO Q8HR PRN Milk Thistle 175 Mg Cap 1 Cap PO BID Metformin (Metformin HCl) 500 Mg Tab 250 Mg PO BIDPC With meals Furosemide 40 Mg Tab 40 Mg PO DAILY Vitamin B-12 (Cyanocobalamin) 1,000 Mcg Tab 2,000 Mcg PO DAILY Carvedilol 25 Mg Tab 25 Mg PO BID Aspirin 81 Mg Tabdr 81 Mg PO DAILY [Parkinsons Med] 1 Tab PO DAILY Active Ordered Medications Current Medications Medications (Trade) Dose Ordered Sig/Domo Route Start Time Stop Time Status Last Admin (Coreg) 25 mg BID PO 01/12/17 14:30 01/12/17 15:03 (Lasix) 40 mg DAILY PO 01/13/17 09:00 (Pamelor) 25 mg HS PO 01/12/17 21:00 (Zoloft) 100 mg BID PO 01/12/17 21:00 (Oramorph Sr) 30 mg Q8HR PRN PO 01/12/17 14:30 (Protonix) 20 mg DAILY PO 01/13/17 09:00 (NS Flush) 2 ml UNSCH PRN IVF 01/12/17 15:15 (NS Flush) 2 ml BID IVF 01/12/17 21:00 (Tylenol) 500 mg Q4H PRN PO 01/12/17 15:15 (Aspirin) 325 mg DAILY PO 01/13/17 09:00 (Xanax) 0.25 mg Q8H PRN PO 01/12/17 15:15 Family History There is family history of CAD. Social History Patient is not a smoker. Physical Exam Vital Signs Vital Signs Date Time Temp Pulse Resp B/P Pulse Ox O2 Delivery O2 Flow Rate FiO2 01/12/17 15:00 62 16 158/80 99 01/12/17 13:00 59 16 138/82 99 Room Air 01/12/17 12:39 99 Room Air 01/12/17 11:55 68 20 97 Room Air 01/12/17 11:41 98.2 99 16 159/79 99 Physical Exam GENERAL: This is a well-nourished, well-developed patient, in no apparent distress. Patient speaks in clear complete sentences. Patient is pleasant. HEENT: Head is atraumatic and normocephalic. Neck is supple without lymphadenopathy and trachea is midline. No JVD or carotid bruits. CARDIOVASCULAR: Regular rate and rhythm without murmurs, gallops, or rubs. RESPIRATORY: Clear to auscultation. Breath sounds equal bilaterally. No wheezes , rales, or rhonchi. Chest wall is nontender. No use of accessory muscles. GASTROINTESTINAL: Abdomen is nontender, nondistended. Abdomen soft. No obvious pulsatile mass or bruit. No CVA tenderness. Strong femoral pulses bilaterally. Normal bowel sounds in all quadrants. MUSCULOSKELETAL: Patient is moving upper and lower extremities freely. No calf tenderness or edema, no Homans sign. Strong pulses in upper and lower extremities. NEUROLOGICAL: Patient is alert and oriented. Cranial nerves 2-12 are grossly intact. No focal deficits and speech is clear. SKIN: No rash and turgor is normal. Laboratory Laboratory Tests Test 01/12/17 01/12/17 11:55 13:05 White Blood Count 13.6 Red Blood Count 5.05 Hemoglobin 14.9 Hematocrit 43.2 Mean Corpuscular Volume 85.6 Mean Corpuscular Hemoglobin 29.6 Mean Corpuscular Hemoglobin 34.5 Concent Red Cell Distribution Width 14.8 Platelet Count 173 Mean Platelet Volume 9.9 Neutrophils (%) (Auto) 71.7 Lymphocytes (%) (Auto) 19.0 Monocytes (%) (Auto) 6.0 Eosinophils (%) (Auto) 2.4 Basophils (%) (Auto) 0.9 Neutrophils # (Auto) 9.8 Lymphocytes # (Auto) 2.6 Monocytes # (Auto) 0.8 Eosinophils # (Auto) 0.3 Basophils # (Auto) 0.1 CBC Comment DIFF FINAL Differential Comment Prothrombin Time 11.0 Prothromb Time International 1.0 Ratio Activated Partial 25.1 Thromboplast Time Sodium Level 139 Potassium Level 4.8 Chloride Level 103 Carbon Dioxide Level 28.9 Anion Gap 7 Blood Urea Nitrogen 13 Creatinine 0.89 Estimat Glomerular Filtration 86 Rate Random Glucose 101 Calcium Level 8.9 Magnesium Level 2.2 Total Bilirubin 1.1 Direct Bilirubin 0.2 Indirect Bilirubin 0.9 Aspartate Amino Transf 51 (AST/SGOT) Alanine Aminotransferase 32 (ALT/SGPT) Alkaline Phosphatase 108 Total Creatine Kinase 85 Troponin I LESS THAN 0.02 B-Type Natriuretic Peptide 42 Total Protein 7.9 Albumin 3.8 Lipase 184 Ammonia 21 Result Diagram: 01/12/17 1155 01/12/17 1155 Imaging Last 48 hours Impressions Chest X-Ray 01/12/17 1151 Signed Impressions: Service Date/Time: Thursday, January 12, 2017 12:07 - CONCLUSION: No acute disease. Cresencio Matt Jr., MD Course Initial EKG is a paced rhythm. Assessment and Plan Assessment and Plan * Chest pain: Patient has been seen by Dr. Lio Torres of cardiology in the chest pain center. I spoke with Dr. Smith. Patient will undergo a Lexiscan and be discharged home if nonischemic. He should keep his appointment for his pacemaker replacement. * Hypertension: Continue current medication. * Diabetes: Patient will be on sliding scale coverage. Resume medicine at discharge. Follow diabetic diet. Patient is stable at this time. He is agreeable to this plan. Silvio Hagen Jan 12, 2017 16:40
[2017-01-12] MEDS ORDERED: REGADENOSON INJ 0.4 MG/5 ML SYR ONE (17:13)
[2017-01-12] MEDS ORDERED: REGADENOSON INJ 0.4 MG/5 ML SYR IV ONE (17:21)
--- NOTE | 2017-01-12 17:58 | HHI.DCPOC ---
Discharge Care Plan Diagnosis: (1) Chest pain (2) Hypertension (3) DM (diabetes mellitus) (4) Chronic back pain (5) Hyperlipidemia Goals to Promote Your Health * To prevent worsening of your condition and complications * To maintain your health at the optimal level Directions to Meet Your Goals Take your medications as prescribed Follow your dietary instruction Follow activity as directed Keep your appointments as scheduled Take your immunizations and boosters as scheduled If your symptoms worsen call your PCP, if no PCP go to Urgent Care Center or Emergency Room Smoking is Dangerous to Your Health. Avoid second hand smoke Call the 24-hour hour crisis hotline for domestic abuse at Silvio Hagen Jan 12, 2017 17:58
--- NOTE | 2017-01-12 18:27 | RADRPT ---
EXAM DATE/TIME: 01/12/2017 16:18 [place] COMPARISON: MYOCARDIAL PERF PHARM SPECT, GATED W/EF, July 29, 2012, 14:59. INDICATIONS : Chest pain for 2 months. Angina. DOSE: 35 mCi Tc99m Myoview at stress. 11 mCi Tc99m Myoview at rest. 0.4 mg Lexiscan STRESS SYMPTOMS: Dyspnea, nausea and headache. EJECTION FRACTION: 58% MEDICAL HISTORY : Congestive hearrt failure. Hypercholesterolemia. Diabetes mellitus type 2. Hypertension. SURGICAL HISTORY : Pacemaker. Cardiac catherization. ENCOUNTER: Initial ACUITY: 2 months PAIN SCALE: 7/10 LOCATION: chest TECHNIQUE: The patient underwent pharmacologic stress with infusion of prescribed dose. Continuous ECG tracing was monitored during stress. Gated SPECT imaging was performed after stress and conventional SPECT i maging was performed at rest. The examination was performed on a SPECT/CT scanner, both attenuation and non-corrected datasets were reviewed. FINDINGS: DISTRIBUTION: The maximum perfused segment at stress is in the inferior wall. PERFUSION STUDY: The pattern of perfusion at stress is within normal limits, with regional variations of perfusion on the attenuation corrected images within 20%. Pattern perfusion at stress and rest is unchanged. Sum med stress score zero. GATED STUDY: There is intact wall motion and thickening without hypokinetic or dyskinetic segments. CONCLUSION: 1. No evidence of stress-induced ischemia. 2. Intact wall motion with 58% ejection fraction. RISK CATEGORY: Low (<1% Annual Mortality Rate) Cresencio Shepard MD on January 12, 2017 at 18:23 Board Certified Radiologist. This report was verified electronically.
[2017-01-12] MEDS ORDERED: SODIUM CHLORIDE 0.9% FLUSH 5 ML FLUSH IVF SCH (21:00)
[2017-01-12] MEDS ORDERED: SERTRALINE HCL 100 MG TAB PO SCH (21:00)
[2017-01-12] MEDS ORDERED: NORTRIPTYLINE HCL 25 MG CAP PO SCH (21:00)
[2017-01-13] MEDS ORDERED: ASPIRIN 325 MG TAB PO SCH (09:00)
[2017-01-13] MEDS ORDERED: PANTOPRAZOLE SOD 20 MG DELAYED RELEASE TAB PO SCH (09:00)
[2017-01-13] MEDS ORDERED: FUROSEMIDE 40 MG TAB PO SCH (09:00)
--- NOTE | 2017-01-13 09:27 | TR ---
Date Performed: 01/12/2017 Time Performed: 17:17:58 DOCTOR: Laquita Wolf DRUG LIST: CLINICAL HISTORY: REASON FOR TEST: CHEST PAIN REASON FOR ENDING: OBSERVATION: CONCLUSION: Lexiscan stress test was performed under standard four minute protocol. Radionuclid e was injected one minute prior to ending the test. No electrocardiographic abormalities were present to suggest ischemia. Nuclear imaging and interpretation are pending. COMMENTS:
--- NOTE | 2017-01-13 13:55 | EKG ---
Date Performed: 01/12/2017 Time Performed: 12:25:52 PTAGE: 66 years EKG: ELECTRONIC VENTRICULAR PACEMAKER Since previous tracing, no significant change noted ABNORM AL RHYTHM ECG PREVIOUS TRACING : 09/29/2016 10.00 DOCTOR: Christopher Flor Interpretating Date/Time 01/13/2017 13:53:13
== END 2017-01-12 19:47 | disposition home or self-care (01) ==
LOC: NEPC 11:38 → NEDA 13:57 → NEPFCDU 15:25
PROVIDERS: ADMIT Internal Medicine Cardiovascular Disease; ATTEND Internal Medicine Cardiovascular Disease
DX: R07.89 Other chest pain (principal); R06.02 Shortness of breath; R06.00 Dyspnea, unspecified; R11.0 Nausea; R94.31 Abnormal electrocardiogram [ECG] [EKG]; I25.119 Atherosclerotic heart disease of native coronary artery with unspecified angina pectoris; E78.5 Hyperlipidemia, unspecified; I42.9 Cardiomyopathy, unspecified; I11.0 Hypertensive heart disease with heart failure; I50.9 Heart failure, unspecified; E11.9 Type 2 diabetes mellitus without complications; E78.00 Pure hypercholesterolemia, unspecified; J45.909 Unspecified asthma, uncomplicated; M54.9 Dorsalgia, unspecified; G89.29 Other chronic pain; F41.9 Anxiety disorder, unspecified; F32.9 Major depressive disorder, single episode, unspecified; G47.30 Sleep apnea, unspecified; H91.90 Unspecified hearing loss, unspecified ear; M19.90 Unspecified osteoarthritis, unspecified site; Z95.0 Presence of cardiac pacemaker; Z79.82 Long term (current) use of aspirin; Z79.84 Long term (current) use of oral hypoglycemic drugs; Z82.49 Family history of ischemic heart disease and other diseases of the circulatory system
CPT/HCPCS: 71010; 78452; 80048; 80076; 82140; 82550; 83690; 83735; 83880; 84484; 85025; 85610; 85730; 93005; 93017; 99285; A9502; G0378; J2785

== ENCOUNTER 2017-01-14 06:10 | Day surgery (SDC) | payer OTHER ==
[~2017-01-14] VITALS: Ht 180.3 cm; Wt 106.3 kg
[~2017-01-14 06:10] MED LIST changes: -HYDR-3533 PO; -PERC5TAB12 PO; -SPIR25TA PO
[2017-01-14] MEDS ORDERED: ceFAZolin 2 GM PREMIX 50 ML IV SCH (06:45)
[2017-01-14] MEDS ORDERED: Hold AM Insulin & AM Hypoglycemic medications in diabetic patients PRN (06:45)
[2017-01-14] MEDS ORDERED: LORazepam 1 MG TAB SL SCH (06:45)
[2017-01-14] MEDS ORDERED: CHLORHEXIDINE GLUCONATE 2 % 1 PACK (2 CLOTHS) TOPICAL PRN (06:45)
[2017-01-14] MEDS ORDERED: METOPROLOL TARTRATE 25 MG TAB PO PRN (06:45)
[2017-01-14] MEDS ORDERED: POVIDONE IODINE 5% (ANTISEPSIS KIT) 4 APPLICATIONS EACH NARE PRN (06:45)
[2017-01-14] MEDS ORDERED: CHLORHEXIDINE GLUCONATE 2 % 1 PACK (2 CLOTHS) TOPICAL SCH (06:45)
[2017-01-14] MEDS ORDERED: LACTATED RINGER'S 1000 ML IV PRN (06:45)
[2017-01-14] MEDS ORDERED: INSULIN HUMAN REGULAR 1,000 UNITS/10 ML VIAL SQ PRN (06:45)
[2017-01-14] MEDS ORDERED: SODIUM CHLORID 0.9% 500 ML IV PRN (06:45)
[2017-01-14] MEDS ORDERED: NS 1000 ML IV SCH (06:45)
[2017-01-14] MEDS ORDERED: POVIDONE IODINE 5% (ANTISEPSIS KIT) 4 APPLICATIONS EACH NARE SCH (06:45)
[2017-01-14] MEDS ORDERED: MUPIROCIN 2% OINT 1 APPLIC/GM SYR NASAL SCH (06:45)
[2017-01-14] MEDS ORDERED: NO Heparin, Lovenox, Coumadin at least 12 hours prior to procedure. PRN (06:45)
[2017-01-14 06:50] VITALS: BP 117/73; PULSE 64; RESP 18; TEMP 98.2; O2SAT 97
[2017-01-14] MEDS ORDERED: SODIUM CHLOR 0.9% 250 ML INJ 250 ML ONE (07:01)
[2017-01-14] MEDS ORDERED: VANCOMYCIN HCL 1000 MG VIAL ONE (07:01)
[2017-01-14 07:03] LABS: BASOPHIL # 0.1 TH/MM3 (0-0.2); BASOPHIL % 0.9 % (0.0-2.0); EOSINOPHIL # 0.3 TH/MM3 (0-0.4); EOSINOPHIL % 2.6 % (0.0-4.0); HEMATOCRIT 42.9 % (39.0-51.0); HEMO FLAGS DIFF FINAL; LYMPH % 31.1 % (9.0-44.0); LYMPHOCYTE # 3.2 TH/MM3 (1.0-4.8); MEAN CELL VOLUME 87.3 FL (80.0-100.0); MEAN CORPUSCULAR HEMOGLOBIN 29.2 PG (27.0-34.0); MEAN CORPUSCULAR HGB CONC 33.5 % (32.0-36.0); NEUT % 58.4 % (16.0-70.0); PLATELET COUNT 170 TH/MM3 (150-450); RED BLOOD COUNT 4.91 MIL/MM3 (4.50-5.90); RED CELL DISTRIBUTION WIDTH 14.6 % (11.6-17.2); WHITE BLOOD COUNT 10.4 TH/MM3 (4.0-11.0)
[2017-01-14] MEDS ORDERED: LEVO25TA4 PO (07:10)
[2017-01-14] MEDS ORDERED: ALBU1AER5 INH (07:10)
[2017-01-14] MEDS ORDERED: LISI2.5T3 PO (07:10)
[2017-01-14] MEDS ORDERED: PRIM50TA5 PO (07:10)
[2017-01-14] MEDS ORDERED: CLAR10CA3 PO (07:10)
[2017-01-14] MEDS ORDERED: MORP1TAB24 PO (07:10)
[2017-01-14] MEDS ORDERED: TIZA4CAP3 PO (07:10)
[2017-01-14] MEDS ORDERED: ASPI81TA11 PO (07:10)
[2017-01-14 07:12] LABS: APTT (PATIENT) 25.3 SEC (24.3-30.1)
[2017-01-14] MEDS ORDERED: PROPOFOL 200 MG/20 ML AMP IV ONE (07:20)
[2017-01-14 07:27] LABS: BICARBONATE 27.9 MEQ/L (21.0-32.0); POTASSIUM 3.9 MEQ/L (3.5-5.1)
[2017-01-14] MEDS ORDERED: LIDOCAINE HCL 2% 50 ML VIAL ONE (07:40)
[2017-01-14] MEDS ORDERED: LEVOFLOXACIN 500 MG PREMIX INJ 100 ML IV ONE (07:40)
[2017-01-14] MEDS ORDERED: VANCOMYCIN 500 MG VIAL ONE (07:40)
[2017-01-14] MEDS ORDERED: MIDAZOLAM HCL 2 MG/2 ML VIAL ONE (07:42)
[2017-01-14] MEDS ORDERED: ACETAMINOPHEN/CODEINE 300 MG/30 MG TAB PO PRN ×2 (08:30)
[2017-01-14] MEDS ORDERED: LEVA500T20 PO (08:34)
[2017-01-14] MEDS ORDERED: ACET-534 PO (08:34)
--- NOTE | 2017-01-14 08:48 | CATHPROC ---
[place] [facility] Report Study Information Study Number Admission Scheduled Start Study Start [id number] Jan 14 2017 6:10AM 01/14/2017 Jan 14 2017 7:30AM [place] Service Cardiac Pacer/ICD Admit Source Facility Department Other [facility] - Costume Draper Physician and Clinical Staff Initial Oscar Alejo Chief School Finance Officer Adrianne Chavez,PYROMETER TEMPERATURE REGULATOR TECH2 Chief School Finance Officer Jackie Sahu,NEAL Other Anesthesia, FUEL PILOT ENGINEER Recorder Lexis Malcolm,RT(R) TECH2 Scrub Jesse Sheikh,RT(R) Equipment Time Seed Core Operator Description Size Mfg Part Number Used/Scraped DERMABOND, ADHESIVE SKIN [id number] 07:31 CORDIS/PACER * Used GLUE MINI *[id number] 07:31 MEDLINE INDUSTRIES SUTURE, STRIP PLUS 1/2" * Used *[id number] 07:31 MEDLINE PACER CAREY, LIMB * 2530 *[id number] Used [id number] 07:31 MEDLINE PACER PACK, PACER CUSTOM * Used *[id number] 07:51 Needle Sponge Count 1 111 Used 07:50 Needle Sponge Count 2 2 Used 07:51 Needle Sponge Count 20 200 Used SUTURE, 0 ETHIBOND [CT1] (CX21D), 8pk SUTURE, 2-0 VICRYL [CT1] ([id number]) SUTURE, 2-0 VICRYL [CT1] ([id number]) [id number] 07:31 [employer],WARM AIR CCL * Used *[id number] [facility] PAD, ELECTROSURGICAL 07:31 * [id number] *[id number] Used SURGICAL GROUNDING ORANGE DEFIBRILLATOR, [employer]- [id number] 08:20 VITATRON [employer] OAE-DDDR Used P *[id number] 08:47 [employer] MONITOR, PACEMAKER\\ICD [id number] Used 07:31 [employer]ITATRON [employer] PLASMABLADE, PEAD 3.0S * [id number] Used [id number] 07:31 [employer]. ELECTRODE, PRO-PADZ BIPHASIC * Used *[id number] Equipment Model, Serial, Lot Number and Expiration Data Description Model Number Serial Number Lot Number Expiration Date DEFIBRILLATOR, [employer]-P [id number] 03-12-2018 History: Current Medications Medication Dosage/Unit Route Frequency Last Date/Time Taken ASA LASIX LISINOPRIL Glucophage History: Allergies Allergy Reaction Penicillin HIVES Labs Hgb (g/dl) Hct (%) RBC (MIL/MM3) WBC (l/cumm) Platelets (thousands) 11.60-17.00 35.00-51.00 4.00-5.90 4.00-11.00 150.00-450.00 14.4 42.9 4.9 10.4 170 PT (sec) PTT (sec) INR (PTT:PT) 9.80-11.60 24.30-30.10 0.90-1.10 11 25.3 1 Medication Medication Total Dose (Bolus/Oral) Medication Total Dosage/Unit 2% XYLOCAINE 50 mL Medications (Bolus/Oral) Medication Time Given Dosage/Unit Administered By Reason 2% XYLOCAINE 01/14/2017 8:19:25 AM 50 mL Anesthesia, FUEL PILOT ENGINEER 50 mL 2% XYLOCAINE given in lab by Anesthesia, FUEL PILOT ENGINEER via Subcutaneous. Ordered by Oscar De La Cruz. Medication (Drip) Medication Time Given Dosage/Unit Concentration/Unit Diluent (ml) Solution ANCEF 01/14/2017 7:41:50 AM 2 g 2 g ANCEF given in lab by Anesthesia, FUEL PILOT ENGINEER in Right Antecubital via Peripheral IV. Ordered by Oscar De La Cruz. IV Solutions 01/14/2017 7:32:38 AM 0 mL (IV) 500 NaCl .9 IV Solutions given pre op by Anesthesia, FUEL PILOT ENGINEER in Right Antecubital via Peripheral IV. Pump/Drip Flow = 20 ml/hr using NaCl .9. IV Solutions 01/14/2017 7:41:36 AM 0 mL (IV) 500 NaCl .9 IV Solutions given pre op by Anesthesia, FUEL PILOT ENGINEER in Left Antecubital via Peripheral IV. Pump/Drip Flow = 20 ml/hr using NaCl .9. VANCOMYCIN DRIP 01/14/2017 7:42:11 AM 1 g 1 g VANCOMYCIN DRIP given in lab by Anesthesia, FUEL PILOT ENGINEER in Right Antecubital via Peripheral IV. Ordered by Oscar De La Cruz. Initial Case Assessment Cardiovascular HR Rhythm NIBP Chest Pain 57 v pacing 117/52 0 Edema Present Skin color Skin None Normal Warm Dry Neurological State Oriented to time-place- Alert Moves all extremities person Respiration - General Respiration Rate SpO2 (%) (B/min) 18 96 Final Case Assessment Cardiovascular HR Rhythm NIBP Chest Pain 75 paced 105/48 0 Edema Present Skin color Skin None Normal Warm Dry Neurological State Oriented to time-place- Alert Moves all extremities person Respiration - General Respiration Rate SpO2 (%) (B/min) 10 99 Chronological Log Time Study Chronological Log 7:20:48 Patient arrived via Bed. 7:21:52 Patient Name, D.O.B, / [place] Verified By R.N. 7:23:57 Pre-op and post- op instructions given; patient acknowledges understanding of instructions. 7:31:03 Anesthesia at bedside. Assumes care of patient. Ashley FUEL PILOT ENGINEER 7:31:11 Presedation assessment performed by Costume Draper RN. 7:31:13 Patient has been NPO for More than 6Hrs. 7:31:14 Skin Breakdown-none per patient. 7:32:29 Patient Warmer Placed on the Table. 7:32:29 Disposable Defibrillator Pads Placed On Patient. 7:32:34 History and physical on the chart or being dictated. 7:32:35 A # 20 IV was noted in the Antecubital (left). Grade = 0 7:32:36 A # 20 IV was noted in the Antecubital (right). Grade = 0 IV Solutions given pre op by Anesthesia, FUEL PILOT ENGINEER in Right Antecubital via Peripheral IV. Pump/Drip Flow = 20 ml/hr using 7:32:38 NaCl .9. 7:32:41 Table restraints applied according to hospital policy 7:32:46 Disposable Defibrillator Pads Placed On Patient. 7:32:47 Bovie ground pad applied to: right hip 7:33:06 2% CHLORHEXIDINE GLUCONATE WASH AND NASAL SWIPE DONE PRIOR TO PROCEDURE. Assessment: Initial Case, HR=57 BPM, Rhythm=v pacing, SOLE=676/52 mmhg, Chest Pain=0, Edema=None , Color=Normal, Skin = Warm, Dry 7:33:18 Neurological: State=Alert, Ox3, DIAMOND Respiration: Resp=18 B/min, SpO2=96 % 7:39:28 Reference ECG taken IV Solutions given pre op by Anesthesia, FUEL PILOT ENGINEER in Left Antecubital via Peripheral IV. Pump/Drip F low = 20 ml/hr using 7:41:36 NaCl .9. 7:41:50 2 g ANCEF given in lab by Anesthesia, FUEL PILOT ENGINEER in Right Antecubital via Peripheral IV. Ordered Oscar Buitrago. 1 g VANCOMYCIN DRIP given in lab by Anesthesia, FUEL PILOT ENGINEER in Right Antecubital via Peripheral IV. Ord ered by Dorothy 7:42:11 Oscar. First Sponge And Instrument Count Done by Adrianne Chavez PYROMETER TEMPERATURE REGULATOR TECH2. 7:48:09 Hypo's: 2, Sponges: 20, Bovie/scratch: 1 Sutures: 2, Blades: 1, Instruments: 26, Syveck Patches: 0 7:51:41 Left Upper Chest Prepped Times Two. 7:57:58 MD paged 8:01:42 MD responded Time Out. Correct patient, procedure, procedure equipment, site and side verified with physician present. Time 8:18:34 concurred by MD, individual staff and FUEL PILOT ENGINEER. Time Out #2 - Consents verified, patient in correct position, all results are labled and display ed, safety precautions 8:18:41 taken, antibiotics administered. Time out concurred by MD, individual staff and FUEL PILOT ENGINEER in procedur e 8:19:15 Case Start 8:19:25 50 mL 2% XYLOCAINE given in lab by Anesthesia, FUEL PILOT ENGINEER via Subcutaneous. Ordered by Shawn De La Cruz. 8:20:29 Surgical Incision Made. 8:21:58 A device was explanted. 8:22:08 A DEFIBRILLATOR, [employer]-P OAE-DDDR was connected and placed in the pocket. 8:22:14 Implant Procedure was performed. 8:22:17 A Bivent Removal . (Dual) 8:22:24 A Bivent ICD Implant . (Dual) 8:22:44 Pocket flushed with antibiotic solution Second Sponge And Instrument Count Done by Adrianne Chavez PYROMETER TEMPERATURE REGULATOR TECH2. 8:23:14 Hypo's: 2, Sponges: 20, Bovie/scratch: 1 Sutures: ~SUTURE~, Blades: 1, Instruments: ~INSTRU~, Syveck Patches: 0 one suture adde to count 8:26:05 The pocket was closed by Jesse Sheikh RTR The Final Sponge And Instrument Count Done by Adrianne Chavez PYROMETER TEMPERATURE REGULATOR TECH2. 8:40:58 Hypo's: 2, Sponges: 20, Bovie/scratch: 1 Sutures: 3, Blades: 1, Instruments: 26, Syveck Patches: 0 8:41:13 Steri-strips and a sterile dressing applied to site. 8:41:17 Case End 8:41:29 Bedside Report will be given. 8:41:35 Sterile dressing applied to site 8:41:36 No case complications noted. 8:41:39 Implantable Device card placed in patient's chart. 8:41:41 Defibrillator and ground pads removed. Skin intact. Assessment: Final Case, HR=75 BPM, Rhythm=paced, WFXX=642/48 mmhg, Chest Pain=0, Edema=None, Color=Normal, Skin = Warm, Dry 8:42:13 Neurological: State=Alert, Ox3, DIAMOND Respiration: Resp=10 B/min, SpO2=99 % 8:43:33 docu called. Spoke to Karmen DE JESUS 8:47:33 Patient moved to stretcher End Study - Contrast Media Used In Study Contrast Total Opened (mL) Total Used (mL) Total Wasted (mL) Unspecified 0 0 0 End Study - Radiation Exposure Fluoro Time (minutes) 0.0 End Study - Patient Disposition Complications Transferred To No Outpatient Bed
--- NOTE | 2017-01-14 09:01 | EKG ---
Date Performed: 01/14/2017 Time Performed: 07:02:52 PTAGE: 66 years EKG: Ventricular pacing Pacemaker rhythm - no further analysis Abnormal ECG PREVIOUS TRACING : 01/12/2017 12.25 DOCTOR: Gurdeep Saldana Interpretating Date/Time 01/14/2017 09:01:04
--- NOTE | 2017-01-19 13:29 | MP ---
cc: KIRSTY LANDIN M.D. DATE OF SURGERY: 01/14/2017 PROCEDURE Biventricular pacer remover, biventricular pacer replacement. INDICATION Mr. Potter is a 66-year-old gentleman with a biventricular pacer end-of-life, history of high blood pressure, diabetes mellitus, COPD, previous biventricular pacer inserted, generator currently end-of-life, admitted for generator replacement. The risks, the nature and the benefit of the procedure were clearly stated to him. The risks include pneumothorax, cardiac perforation, stroke, need for open heart surgery and even . The patient understood and agreed to proceed. DETAILS OF PROCEDURE After written informed consent was obtained, the patient was brought to the EP lab where he was prepped and draped in the usual sterile fashion. Conscious sedation was initiated and maintained throughout the procedure by the anesthesiologist. Once sedation was verified, the left supraclavicular area was anesthetized with 2% Xylocaine. Using a #11 blade scalpel, a 3 cm incision was made over the existing generator. The incision was taken down to the fascial layer using Bovie cautery and blunt dissection. Once exposed, the generator was removed from the pocket. Scar tissue was removed and them the pocket was expanded. Pocket revision was performed. Then the leads were disconnected from the generator and connected to the new generator and placed into the pocket. I did proceed with wound closure. The deep fascial layer was approximated using 2-0 Vicryl suture in a continuous fashion. The subcutaneous layer was approximated using 2-0 Vicryl suture in a continuous fashion. The subcuticular layer was approximated using 2-0 Vicryl suture in a continuous fashion. Dermabond adhesive was applied to the wound followed by a sterile pressure dressing. There was no complication. The patient tolerated the procedure. Blood loss minimal. EXPLANTED HARDWARE The explanted biventricular pacer is a [employer], model C4TR01, serial number [id number], implanted in 2011. IMPLANTED HARDWARE The implanted biventricular pacer is a [employer]onic, model C4TR01, serial number [id number]. THRESHOLDS The right atrial pacing threshold in the bipolar mode was 0.75 volts at 0.5 milliseconds. Lead impedance 260 ohms. P-wave at 2.3 millivolts. The right ventricular pacing threshold in the bipolar mode was 2.25 volts at 1 milliseconds. Lead impedance 456 ohms. R-wave at 17.1 millivolts. The left ventricular pacing threshold in the bipolar mode was 1.25 volts at 0.5 milliseconds. Lead impedance 245 ohms. SETTINGS The device is set in a DDD 60, upper limit 140 beats per minute. LV first by 40 milliseconds AV delay and paced at 160, sensed at 140. CONCLUSIONS Stressful biventricular pacer removal, biventricular pacer replacement and pocket revision. COMMENT/RECOMMENDATION The patient is going to be transferred to the recovery room. He will be observed and when stable can be discharged home. Kirsty Landin MD HS/BT /10:18 PM /1:08 PM
== END 2017-01-14 10:57 | disposition home or self-care (01) ==
LOC: HDOC 06:10 → HDIC 06:10 → HDOC 10:57
PROVIDERS: ATTEND Internal Medicine Interventional Cardiology
DX: Z45.010 Encounter for checking and testing of cardiac pacemaker pulse generator [battery] (principal); I47.1 Supraventricular tachycardia; I11.0 Hypertensive heart disease with heart failure; I50.9 Heart failure, unspecified; I42.8 Other cardiomyopathies; E11.9 Type 2 diabetes mellitus without complications; J44.9 Chronic obstructive pulmonary disease, unspecified; K74.60 Unspecified cirrhosis of liver; E78.00 Pure hypercholesterolemia, unspecified
CPT/HCPCS: 00530; 33264; 80048; 85025; 85610; 85730; 86850; 86900; 86901; 93005; C1882; J1956; J2250; J3010; J3370; J7050